=== PATIENT | female | born 1985 | race Caucasian/White ===

== ENCOUNTER 2018-11-15 07:30 | Inpatient (IN) | payer BC ==
[~2018-11-15] VITALS: Ht 152.4 cm; Wt 83.0 kg
[2018-11-16] MEDS ORDERED: LR 1,000 ML IV SCH (02:58)
[2018-11-16] MEDS ORDERED: CEFAZOLIN 2 GM IVPB PREMIX 50 ML IV ONE (03:00)
[2018-11-16 03:26] LABS: BILIRUBIN,URINE NEGATIVE (NEGATIVE); BLOOD, URINE NEGATIVE (NEGATIVE); CLARITY/URINE CLEAR (CLEAR); COLOR,URINE YELLOW (YELLOW); GLUCOSE,URINE NEGATIVE (NEGATIVE); KETONES,URINE NEGATIVE (NEGATIVE); LEUKOCYTE ESTERASE ,URINE NEGATIVE (NEGATIVE); NITRITE, URINE NEGATIVE (NEGATIVE); PROTEIN URINE NEGATIVE (NEGATIVE); UROBILINOGEN,URINE 0.2 (0.2-1.0)
[2018-11-16 03:27] LABS: BASOPHILS # (AUTO) 0.1 K/uL (0.0-0.2); BASOPHILS % (AUTO) 0.6 % (0.0-2.0); EOSINOPHILS # (AUTO) 0.1 K/uL (0.0-0.4); EOSINOPHILS % (AUTO) 1.2 % (0.0-4.0); HEMATOCRIT 40.1 % (36-48); HEMOGLOBIN 13.2 g/dL (12.0-16.0); LYMPHOCYTES # (AUTO) 1.9 K/uL (1.0-5.5); LYMPHOCYTES % (AUTO) 19.5 % (20.5-51.5); MEAN CORPUSCULAR HEMOGLOBIN 31 pg (27-31); MEAN CORPUSCULAR HGB CONC 33 % (32-36); MEAN CORPUSCULAR VOLUME 93 fL (79.0-98.0); MONOCYTES # (AUTO) 0.8 K/uL (0.0-1.0); MONOCYTES % (AUTO) 7.8 % (1.7-9.3); NEUTROPHILS # (AUTO) 6.7 K/uL (1.8-7.7); NEUTROPHILS % (AUTO) 70.9 % (40.0-70.0); PLATELET COUNT (AUTO) 172 K/uL (130-430); RED BLOOD CELL COUNT(AUTO) 4.31 MIL/uL (4.2-6.2); RED CELL DISTRIBUTION WIDTH 15.2 % (9.0-15.0); WHITE BLOOD COUNT (AUTO) 9.6 K/uL (4.8-10.8)
[2018-11-16] MEDS ORDERED: AMPICILLIN SODIUM 2 GM in NS 100 ML IV ONE (03:30)
[2018-11-16] MEDS ORDERED: AMPICILLIN SODIUM 2 GM VIAL ONE (03:55)
[2018-11-16] MEDS ORDERED: METHYLERGONOVINE MALEATE 0.2 MG/ML AMP IM ONE (07:30)
[2018-11-16] MEDS ORDERED: MIDAZOLAM HCL 5 MG/5 ML VIAL IVP ONE (07:30)
[2018-11-16] MEDS ORDERED: LR 1,000 ML IV.SOLN IV ONE (07:30)
[2018-11-16] MEDS ORDERED: BUPIVACAINE /DEX PF 0.75% SPINAL 2 ML AMP INJ ONE (07:30)
[2018-11-16] MEDS ORDERED: NS IRRIG SOLN 1000 ML IR ONE (07:30)
[2018-11-16] MEDS ORDERED: MORPHINE SULFATE 10MG/10ML PF AMP EP ONE (07:30)
[2018-11-16] MEDS ORDERED: ePHEDrine sulfate 50 MG/ML VIAL IVP ONE (07:30)
[2018-11-16] MEDS ORDERED: DIPHENHYDRAMINE INJ 50 MG/ML VIAL IVP PRN (08:30)
[2018-11-16] MEDS ORDERED: NALOXONE HCL 0.4 MG/ML AMP (NARCAN) IVP PRN ×2 (08:30)
[2018-11-16] MEDS ORDERED: fentaNYL CITRATE/PF 100 MCG/2 ML AMP IVP PRN ×2 (08:30)
[2018-11-16] MEDS ORDERED: NALBUPHINE HCL 10 MG/ML AMP IVP PRN (08:30)
[2018-11-16] MEDS ORDERED: MORPHINE SULFATE 10MG/10ML PF AMP SP SCH (08:30)
[2018-11-16] MEDS ORDERED: KETOROLAC TROMETHAMINE 60 MG/2 ML VIAL IM PRN (08:30)
[2018-11-16] MEDS ORDERED: ONDANSETRON HCL 4 MG/2 ML VIAL IVP PRN (08:30)
[2018-11-16] MEDS ORDERED: OXYTOCIN/0.9 % SODIUM CHLORIDE 1,000 ML IV ONE (08:39)
[2018-11-16] MEDS ORDERED: ANUSOL 1 EA SUPP.RECT (PREPARATION H) RC PRN (08:45)
[2018-11-16] MEDS ORDERED: SENNOSIDES/DOCUSATE SODIUM 1 TAB TABLET(SENOKOT-S) PO PRN (08:45)
[2018-11-16] MEDS ORDERED: LANOLIN 7 GM OINT. TP PRN (08:45)
[2018-11-16] MEDS ORDERED: DIPH-TET-PERTUS Vaccine 0.5 ML VIAL (ADACEL) I.M. PRN (08:45)
[2018-11-16] MEDS ORDERED: MEASLES,MUMPS&RUBELLA VACC/PF 12500 UNIT/0.5 ML VIAL SUBQ PRN (08:45)
[2018-11-16] MEDS ORDERED: HYDROcodone/ACETAMIN 5-325 MG TAB (NORCO/ VICODIN) PO PRN (08:45)
[2018-11-16] MEDS ORDERED: BISACODYL 10 MG/SUPPOSITORY RC PRN (08:45)
[2018-11-16] MEDS ORDERED: OXYCODONE/ACETAMINOPHEN 5-325 TABLET PO PRN (08:45)
[2018-11-16] MEDS ORDERED: RHO(D) IMMUNE GLOBULIN/MALTOSE 1500 UNITS/1.3 ML (WINHRO) IM PRN (08:45)
[2018-11-16 08:50] VITALS: BP_SYST 115
[2018-11-16] MEDS: CEFAZOLIN 1 GM IVPB PREMIX 50 ML IV SCH ×2 (14:00→20:00)
[2018-11-16] MEDS: SIMETHICONE 80 MG TAB.CHEW PO PRN ×2 (15:36→23:23)
[2018-11-16] MEDS: KETOROLAC TROMETHAMINE 30 MG VIAL IVP SCH ×2 (17:54→23:23)
[2018-11-16] MEDS: LR 1,000 ML IV SCH (18:45)
[2018-11-16] MEDS ORDERED: TEMAZEPAM 15 MG CAPSULE PO PRN (21:00)
[2018-11-17] MEDS: CEFAZOLIN 1 GM IVPB PREMIX 50 ML IV SCH
[2018-11-17] MEDS: LR 1,000 ML IV SCH (02:05)
[2018-11-17] MEDS: KETOROLAC TROMETHAMINE 30 MG VIAL IVP SCH ×2 (05:41→12:10)
[2018-11-17] MEDS: SIMETHICONE 80 MG TAB.CHEW PO PRN ×2 (05:42→17:45)
[2018-11-17 06:47] LABS: BASOPHILS % (AUTO) 0.3 % (0.0-2.0); EOSINOPHILS # (AUTO) 0.1 K/uL (0.0-0.4); EOSINOPHILS % (AUTO) 1.3 % (0.0-4.0); HEMATOCRIT 25.2 % (36-48); HEMOGLOBIN 8.3 g/dL (12.0-16.0); LYMPHOCYTES # (AUTO) 1.3 K/uL (1.0-5.5); LYMPHOCYTES % (AUTO) 12.7 % (20.5-51.5); MEAN CORPUSCULAR HEMOGLOBIN 31 pg (27-31); MEAN CORPUSCULAR HGB CONC 33 % (32-36); MEAN CORPUSCULAR VOLUME 94 fL (79.0-98.0); MONOCYTES # (AUTO) 0.7 K/uL (0.0-1.0); MONOCYTES % (AUTO) 6.3 % (1.7-9.3); NEUTROPHILS # (AUTO) 8.4 K/uL (1.8-7.7); NEUTROPHILS % (AUTO) 79.4 % (40.0-70.0); PLATELET COUNT (AUTO) 139 K/uL (130-430); RED BLOOD CELL COUNT(AUTO) 2.69 MIL/uL (4.2-6.2); RED CELL DISTRIBUTION WIDTH 15.3 % (9.0-15.0); WHITE BLOOD COUNT (AUTO) 10.5 K/uL (4.8-10.8)
[2018-11-17] MEDS: IBUPROFEN 600 MG TABLET PO SCH ×2 (08:39→17:44)
[2018-11-17] MEDS: DOCUSATE SODIUM 100 MG CAPSULE PO PRN (17:44)
[2018-11-17] MEDS: OXYCODONE/ACETAMINOPHEN 5-325 TABLET PO PRN (21:00)
[2018-11-18] MEDS: OXYCODONE/ACETAMINOPHEN 5-325 TABLET PO PRN ×2 (02:34→09:47)
[2018-11-18] MEDS: IBUPROFEN 600 MG TABLET PO SCH ×3 (05:16→18:04)
[2018-11-18] MEDS: SIMETHICONE 80 MG TAB.CHEW PO PRN ×2 (05:20→18:03)
[2018-11-18] MEDS: DOCUSATE SODIUM 100 MG CAPSULE PO PRN (18:03)
== END 2018-11-18 22:10 | disposition home or self-care (01) | DRG 787 ==
LOC: SPU 11-16 02:23
PROVIDERS: ADMIT Specialist; ATTEND Specialist
PROC: 10D00Z1 Extraction of Products of Conception, Low, Open Approach (ICD-10-PCS; principal; 2018-11-18)
PROC: 3E0R3BZ Introduction of Anesthetic Agent into Spinal Canal, Percutaneous Approach (ICD-10-PCS; 2018-11-18)
DX: O34.83 Maternal care for other abnormalities of pelvic organs, third trimester (principal); R71.0 Precipitous drop in hematocrit; O99.824 Streptococcus B carrier state complicating childbirth; Z37.0 Single live birth; Z3A.39 39 weeks gestation of pregnancy
CPT/HCPCS: 36415; 81003; 85025; 86592; 86886; 86900; 86901; 94760; J0290; J0690; J1885; J2210; J2250; J2274; J2590; J3490; J7120

== ENCOUNTER 2019-06-22 06:15 | Day surgery (SDC) | payer BC ==
[~2019-06-22] VITALS: Ht 152.4 cm; Wt 76.7 kg
[2019-06-22] VITALS (7 sets, daily range): BP systolic 114–136
[2019-06-22] MEDS ORDERED: ceFAZolin SODIUM 2 GM in D5W 50 ML IV ONE (07:00)
[2019-06-22] MEDS ORDERED: ONDANSETRON HCL 4 MG/2 ML VIAL IVP PRN (08:15)
[2019-06-22] MEDS ORDERED: fentaNYL CITRATE/PF 100 MCG/2 ML AMP IVP PRN ×2 (08:15)
[2019-06-22] MEDS ORDERED: OXYCODONE/ACETAMINOPHEN 5-325 TABLET PO PRN ×2 (09:30)
[2019-06-22] MEDS ORDERED: ONDANSETRON HCL 4 MG/2 ML VIAL IM PRN (09:30)
[2019-06-22] MEDS ORDERED: ROCURONIUM BROMIDE 10 MG/ML (ZEMURON) ONE (09:40)
[2019-06-22] MEDS ORDERED: LIDOCAINE 1% 10 MG/ML, 20 ML MDV ONE (09:40)
[2019-06-22] MEDS ORDERED: KETOROLAC TROMETHAMINE 30 MG VIAL ONE (09:40)
[2019-06-22] MEDS ORDERED: NEOSTIGMINE METHYLSULFATE 1 MG/ML, 10 ML VIAL ONE (09:40)
[2019-06-22] MEDS ORDERED: MIDAZOLAM HCL 5 MG/ML VIAL (VERSED) IV ONE (09:40)
[2019-06-22] MEDS ORDERED: NS 1000 ML IV.SOLN IV ONE (09:40)
[2019-06-22] MEDS ORDERED: ROPIVACAINE HCL/PF 0.2% EPIDURAL 200 ML PLAST..BAG ONE (09:40)
[2019-06-22] MEDS ORDERED: ONDANSETRON HCL 4 MG/2 ML VIAL ONE ×2 (09:40→12:36)
[2019-06-22] MEDS ORDERED: fentaNYL CITRATE/PF 100 MCG/2 ML AMP ONE ×2 (09:40→10:35)
[2019-06-22] MEDS ORDERED: GLYCOPYRROLATE 0.2 MG/ML VIAL ONE (09:40)
[2019-06-22] MEDS ORDERED: SEVOFLURANE 15 MIN GAS INH ONE (09:40)
[2019-06-22] MEDS ORDERED: NS IRRIG SOLN 1000 ML IR ONE (09:40)
[2019-06-22] MEDS ORDERED: PROPOFOL 200MG/ 20ML VIAL (DIPRIVAN) IV ONE (09:40)
[2019-06-22] MEDS ORDERED: BUPIVACAINE /PF 0.5% 30 ML VIAL ONE (09:40)
[2019-06-22] MEDS ORDERED: WATER FOR IRRIGATION,STERILE 1,000 ML IRRIG.SOLN IR ONE (09:40)
--- NOTE | 2019-06-22 11:00 | NUR ---
Note Pt arrived to floor via bed from PACU. Pt AAOX4. Pt has 4 lap sites. Pt has Q-pump running at 10ml/hr. Chavez catheter intact and draining well. IV in left forearm patent and intact infusing IVF's well. No SOB/resp distress or severe abdominal pain/discomfort noted at this time. Pt was oriented to nursing routines and procedures. instructed in use of call light and bed in low position at this time. Call light within reach.
--- NOTE | 2019-06-22 12:00 | NUR ---
Note Admit JONO Cage completed part of admission data and report received. Pt wants to rest at this time after Percocet 1 tablet and Zofran IVP was given. Pt's father at bedside. Call light within reach.
--- NOTE | 2019-06-22 16:00 | NUR ---
Note Pt encouraged to use IS q1' 10X while awake. Pt encouraged to turn frequently in bed as tolerated. Pt notified that she can be assisted to sit up on side of bed when she feels up to it. Pt wants to rest at this time. States she will do it later with 's assistance. No needs noted at this time. Call light within reach.
--- NOTE | 2019-06-22 18:30 | NUR ---
Note Pt sitting up in bed trying her Regular diet tray at this time. Pt sat up on side of bed for 20 minutes with by her side. Pt moved side to side in bed to help pass flatus. No SOB/resp distress or severe abdominal pain/discomfort noted at this time. Chavez catheter intact and draining. Pt was checked on q1' and PRN all shift for needs and care. Q-pump maintaining pain tolerance at this time. IV in left hand intact and patent infusing IVF's well. Pt maintained with safety precautions all shift. No needs noted at this time. Pt has bilateral SCD's all shift. Call light within reach. Pt uses IS q1' 10X and up to 2000.
--- NOTE | 2019-06-22 19:20 | NUR ---
OPENING NOTE RECEIVED CARE OF PT AND SBAR REPORT. PT RESTING IN BED, AAOX4, NO S/S OF ACUTE DISTRESS. BREATHING IS UNLABORED TO ROOM AIR. PT DENIES PAIN AT THIS TIME. DRESSING TO ABDOMEN ARE CLEAN/DRY/INTACT. GIFFORD CATHETER IS INTACT AND DRAINING WELL TO GRAVITY. INCENTIVE SPIROMETER IS AT BEDSIDE, PT REMINDED TO USE AT LEAST 10 TIMES PER HOUR WHILE AWAKE, PT VERBALIZED UNDERSTANDING. POC DISCUSSED WITH PT. PT ORIENTED TO USE OF CALL LIGHT AND ENCOURAGED TO CALL FOR ANY ASSISTANCE. SAFETY PRECAUTIONS ARE IN PLACE: BED IS LOCKED IN LOWEST POSITION, CALL LIGHT IS WITH PT, SIDE RAILS UP X2, PERSONAL ITEMS WITHIN REACH. WILL MONITOR.
[2019-06-22] MEDS: ONDANSETRON HCL 4 MG/2 ML VIAL IVP PRN (21:19)
[2019-06-22] MEDS: HYDROcodone/ACETAMIN 5-325 MG TAB (NORCO/ VICODIN) PO PRN (21:20)
--- NOTE | 2019-06-22 21:20 | NUR ---
PAIN/NAUSEA PT REPORTING PAIN AND REQUESTING NORCO. NORCO 5-325 MG PO ADMINISTERED. PT ALSO REQUESTING ZOFRAN FOR NAUSEA. ZOFRAN 4 MG IVP ADMINISTERED. MEDICATION ACTIONS AND POTENTIAL SIDE EFFECTS EXPLAINED TO PT. PT VERBALIZED UNDERSTANDING. NO S/S OF ACUTE DISTRESS. SAFETY PRECAUTIONS ARE IN PLACE. WILL MONITOR.
--- NOTE | 2019-06-22 23:38 | NUR ---
RESTING PT IS RESTING IN BED, NO S/S OF ACUTE DISTRESS, BREATHING IS EVEN AND UNLABORED TO ROOM AIR. PT APPEARS COMFORTABLE WITH NO SIGN OF PAIN. SAFETY AND FALL PRECAUTIONS ARE IN PLACE. WILL MONITOR.
--- NOTE | 2019-06-23 01:48 | NUR ---
RN NOTE: PT RESTING IN BED, NO S/S OF DISTRESS, BREATHING IS UNLABORED TO ROOM AIR. GIFFORD CATHETER IS INTACT AND DRAINING WELL TO GRAVITY. SAFETY PRECAUTIONS ARE IN PLACE: BED IS LOCKED IN LOWEST POSITION, CALL LIGHT IS WITH PT, SIDE RAILS UPX2. WILL MONITOR.
[2019-06-23] MEDS: ONDANSETRON HCL 4 MG/2 ML VIAL IVP PRN ×2 (03:07→11:00)
[2019-06-23] MEDS: HYDROcodone/ACETAMIN 5-325 MG TAB (NORCO/ VICODIN) PO PRN ×2 (03:08→10:59)
--- NOTE | 2019-06-23 03:08 | NUR ---
PAIN/NAUSEA PT REPORTING PAIN AND REQUESTING NORCO. NORCO 5-325 MG PO ADMINISTERED. PT ALSO REQUESTING ZOFRAN FOR NAUSEA. ZOFRAN 4 MG IVP ADMINISTERED. PT ALSO GIVEN ICE PACKS TO PLACE ON INCISIONS PER REQUEST. FRESH ICE WATER ALSO PROVIDED. NO S/S OF ACUTE DISTRESS. BREATHING IS UNLABORED TO ROOM AIR. SAFETY PRECAUTIONS ARE IN PLACE, CALL LIGHT IS WITH PT. WILL MONITOR.
--- NOTE | 2019-06-23 06:01 | NUR ---
D/C GIFFORD D/C'D GIFFORD CATHETER. PT TOLERATED WELL. PT IMMEDIATELY ABLE TO VOID. PT ALSO REPORTED PASSING GAS. SAFETY MAINTAINED. WILL MONITOR.
--- NOTE | 2019-06-23 06:44 | NUR ---
CLOSING NOTE PT RESTING IN BED, AAOX4, NO S/S OF ACUTE DISTRESS, BREATHING IS EVEN AND UNLABORED TO ROOM AIR. ALL NEEDS MET DURING SHIFT. SAFETY MAINTAINED. WILL CONTINUE TO MONITOR UNTIL PT CARE IS ENDORSED TO DAY SHIFT RN.
[2019-06-23 07:50] VITALS: BP_SYST 118
--- NOTE | 2019-06-23 08:00 | NUR ---
Note Pt sitting up in bed eating her regular diet tray at this time. IV in left forearm intact and patent. Pt's 4 lap sites dressing intact at this time with Q-pump running for pain tolerance. No SOB/resp distress or severe abdominal pain/discomfort noted at this time. Pt had Chavez catheter out at 6am and [place] [facility] [place]. Call light within reach.
--- NOTE | 2019-06-23 09:45 | NUR ---
Nutrition Update Jerry Scale 17 noted. Pt admitted for pelvic and perineal pain. Diet: regular BMI: 33 kg/m2 RD to follow per nutrition care standards.
--- NOTE | 2019-06-23 11:45 | NUR ---
Note Pt has been ambulating in hallway continuously with by her side. Pt was given discharge order home with Q-pump at this time by Dr Pierce. Pt able to pass flatus and able to keep diet down without any nausea at this time. Pt also uses IS q1' 10X while awake as instructed. Dr Pierce was called and order for followup with him next week given..
[2019-06-23 11:49] VITALS: BP_SYST 115
[2019-06-23 12:21] VITALS: BP_SYST 128
--- NOTE | 2019-06-23 13:50 | NUR ---
Note Pt resting in bed after eating her lunch. Pt's off bedside to go to a previous appointment. Pt's will return in 2 hours as stated. No needs noted at this time. Call light within reach.
--- NOTE | 2019-06-23 15:30 | NUR ---
Note Pt dressed in street clothes and packed all belongings. Discharge paperwork given and questions/concerns were answered at this time. Pt and her checked side table and drawers for belongings. Pt's left hand IV was dc'd - site benign. No bleeding/drainage or redness noted at site. Pt's 4 lap sites intact with dressings. No bleeding/drainage or swelling noted at this time. Pt was encouraged to have ice packs on abdomen for soreness and swelling all shift. Pt used IS 10X q1' while awake all shift. Pt was ambulating in halls and room all shift. No needs noted. Pt stable. Pt was checked on q1' and PRN all shift for needs and care. Pt was maintained with safety precautions all shift. Pt tolerated regular diet without nausea or emesis all shift.
--- NOTE | 2019-06-23 15:40 | NUR ---
Note Pt off the floor with by her side with all belongings and discharge paperwork. Pt stable.
== END 2019-06-23 15:40 | disposition home or self-care (01) ==
LOC: SDS 06:15 → SMU 06:15 → SDS 06-23 15:40
PROVIDERS: ATTEND Specialist
DX: N80.1 Endometriosis of ovary (principal); K66.0 Peritoneal adhesions (postprocedural) (postinfection); N83.01 Follicular cyst of right ovary; K42.9 Umbilical hernia without obstruction or gangrene; N83.201 Unspecified ovarian cyst, right side; D64.9 Anemia, unspecified; E66.3 Overweight; Z79.899 Other long term (current) drug therapy; Z98.890 Other specified postprocedural states
CPT/HCPCS: 49585; 58552; 88302; 88307; 94010; C1727; J0690; J1885; J2001; J2250; J2405 ×2; J2704; J2710; J3010; J3490 ×2; J7030; J7060; J7120; E0190